=== PATIENT | female | born 1975 | race Two or more races ===

== ENCOUNTER 2016-09-15 09:07 | Day surgery (SDC) | payer MEDICAID ==
[2016-09-15 10:01] LABS: BASO % 0.7 % (0-2); EOS % 2.2 % (0-7); EOSINOPHIL ABSOLUTE COUNT 0.1 tho/cmm (0.0-0.7); HCT-HEMATOCRIT 31.6 % (34.0-49.0); HGB-HEMOGLOBIN 10.2 gm/dl (12.0-15.5); IMMATURE GRANULOCYTES ABSOLUTE 0.01 tho/cmm (0-0.03); IMMATURE GRANULOCYTES PERCENT 0.2 % (0-0.3); LYMPH % 27.6 % (20-45); LYMPH ABSOLUTE COUNT 1.6 tho/cmm (0.8-4.5); MCH (MEAN CORPUSCULAR HGB) 20.5 pg (28.0-32.0); MCHC MEAN CORPUSCULAR HGB CONC 32.3 % (32.0-36.0); MCV (MEAN CELL VOLUME) 63.6 fl (82.0-96.0); MEAN PLATELET VOLUME 10.3 cmc (9.4-12.4); MONO % 8.1 % (0-12); MONOCYTE ABSOLUTE COUNT 0.5 tho/cmm (0.0-1.2); NEUTROPHIL ABSOLUTE COUNT 3.6 tho/cmm (1.6-8.0); NEUTROPHIL-AUTOMATED 3.6 tho/cmm (1.6-8.0); NEUTROPHILS % 61.2 % (40-80); PLATELET COUNT 259 tho/cmm (150-450); RED BLOOD COUNT 4.97 mil/cmm (4.00-5.20); RED CELL DISTRIBUTION WIDTH 15.3 % (12.4-16.4); WHITE BLOOD COUNT 5.8 tho/cmm (4.0-10.0)
[2016-09-15] MEDS ORDERED: IBUPROFEN200 M2 PO (10:10)
[2016-09-15 10:26] LABS: ANION GAP 13 mmol/L (0-20); BLOOD UREA NITROGEN 8 mg/dl (6-24); CALCIUM 8.7 mg/dl (8.5-10.5); CARBON DIOXIDE-VENOUS 25 mmol/L (22-32); CHLORIDE 108 mmol/l (96-110); CREATININE 0.64 mg/dl (0.50-1.10); GLUCOSE 92 mg/dL (70-110); POTASSIUM 3.9 mmol/L (3.7-5.1); SODIUM 142 mmol/L (135-145); eGFR VALUE FOR BLACK >90 mL/Min
== END 2016-09-15 13:12 ==
LOC: ENDOS 09:07 → SHSC 09:08 → ENDOS 11:45
PROVIDERS: Anesthesiology
PROC: 0DJD8ZZ Inspection of Lower Intestinal Tract, Via Natural or Artificial Opening Endoscopic (ICD-10-PCS; principal; 2016-09-15)
DX: K64.4 Residual hemorrhoidal skin tags (principal); K64.8 Other hemorrhoids; Z98.890 Other specified postprocedural states

== ENCOUNTER 2016-09-17 05:42 | Day surgery (SDC) | payer MEDICAID ==
[~2016-09-17 05:42] MED LIST: IBUPROFEN200 M2 PO
== END 2016-09-17 11:45 ==
LOC: SRG 05:42 → SHSC 05:43 → ORW 07:55 → PACU 08:47 → SHSC 10:05
PROC: 0WUF0JZ Supplement Abdominal Wall with Synthetic Substitute, Open Approach (ICD-10-PCS; principal; 2016-09-17)
DX: K42.9 Umbilical hernia without obstruction or gangrene (principal); Z98.890 Other specified postprocedural states
CPT/HCPCS: C1781; J0690; J3010